=== PATIENT | female | born 1960 | race Caucasian/White ===

== ENCOUNTER → 2017-05-13 | Outpatient (CLI) | payer OTHER ==
[~2017-05-13] MED LIST: ESCI1TAB10 PO; GADAVIST IV PRN; OXYC-57 PO
--- NOTE | 2017-05-13 10:17 | DIAGNOSTIC IMAGING REPORT ---
TWO VIEW CHEST CLINICAL HISTORY: Memory loss.. FINDINGS: PA and lateral chest radiographs are compared to study dated 04/17/2010. The cardiomediastinal silhouette is unremarkable. The lungs appear slightly hyperinflated. Chronic interstitial thickening is similar to previous. There is no airspace consolidation or pleural effusion. There is no pneumothorax. Nipple shadows project over the lung bases. The skeletal structures are osteopenic. The bony thorax appears intact. Fusion hardware is seen in the lower cervical spine. IMPRESSION: No active disease in the chest. Electronically signed by: Robert Kruse M.D. 05/13/2017 10:16 AM Dictated Date/Time: 05/13/2017 10:14 AM
--- NOTE | 2017-05-13 10:21 | DIAGNOSTIC IMAGING REPORT ---
MRI OF THE BRAIN COMBO CLINICAL HISTORY: Memory loss. Altered sense of taste. COMPARISON STUDY: MRI of the brain dated 11/13/2013. TECHNIQUE: MRI of the brain was performed utilizing various T1 and T2-weighted sequences in the axial, sagittal, and coronal planes. Contrast-enhanced sequences were acquired following the administration of 7.5 cc of Gadavist. FINDINGS: Brain parenchyma: The brain parenchyma is normal in appearance. There is no hemorrhage or mass effect. There is no restricted diffusion to suggest acute ischemia. No enhancing mass lesion is identified on the postcontrast images. Barrios-white matter differentiation is preserved. No extra-axial fluid collection is seen. The cerebellar tonsils are normal in configuration. Ventricles, sulci, and cisterns: Normal in configuration. Pituitary and sella: Unremarkable. Intracranial vasculature: Normal flow voids are maintained at the skull base. Orbits: The bony orbits are grossly intact. Orbital contents are normal in appearance. Sinuses and mastoids: Clear. Calvarium: Unremarkable. Cervical cord: Partially visualized cervical spinal cord is normal in morphology and signal intensity. IMPRESSION: No acute intracranial abnormality. Electronically signed by: Robert Kruse M.D. 05/13/2017 10:19 AM Dictated Date/Time: 05/13/2017 10:16 AM
== END | disposition home or self-care (01) ==
LOC: C.MRIBC 09:21
PROVIDERS: ATTEND Nurse Practitioner Family
DX: R41.3 Other amnesia (principal); R43.2 Parageusia

== ENCOUNTER 2017-07-07 21:34 | Emergency (ER) | payer OTHER ==
[~2017-07-07] VITALS: Ht 160 cm; Wt 80.6 kg
[~2017-07-07 21:34] MED LIST changes: -GADAVIST IV PRN
[2017-07-07 21:43] VITALS: TEMP 36.5; Ht 160 cm; Wt 80.6 kg
[2017-07-07] MEDS ORDERED: KETOROLAC TROMETHAMINE 30 MG/ML VIAL IV STA (22:07)
[2017-07-07] MEDS ORDERED: WLLSR/300 PO (22:17)
[2017-07-07] MEDS ORDERED: BUPR-79 PO (22:31)
[2017-07-07 22:33] LABS: BASO % 0.2 %; BASO ABS # 0.02 K/uL (0-0.2); EOS % 1.1 %; EOS ABS # 0.09 K/uL (0-0.5); HEMOGLOBIN 13.4 g/dL (12.0-16.0); IG# 0.01 K/uL (0.00-0.02); LYMPH % 30.5 %; LYMPH ABS # 2.44 K/uL (1.2-3.4); MEAN CELL VOLUME 86.9 fL (80-100); MEAN CORPUSCULAR HEMOGLOBIN 29.8 pg (25-34); MEAN CORPUSCULAR HGB CONC 34.4 g/dl (32-36); MEAN PLATELET VOLUME 9.7 fL (7.4-10.4); MONO % 7.1 %; MONO ABS # 0.57 K/uL (0.11-0.59); NEUT ABS # 4.88 K/uL (1.4-6.5); PLATELET COUNT 236 K/uL (130-400); RED CELL DISTRIBUTION WIDTH CV 14.1 % (11.5-14.5); RED CELL DISTRIBUTION WIDTH SD 44.3 fL (36.4-46.3); WHITE BLOOD COUNT 8.01 K/uL (4.8-10.8)
--- NOTE | 2017-07-07 22:57 | DIAGNOSTIC IMAGING REPORT ---
ABDOMEN FOR HERNIA CLINICAL HISTORY: 56 years-old Female presenting with Periumbilical hernia. TECHNIQUE: Real-time grayscale Doppler ultrasound imaging of the periumbilical region was performed for a focused evaluation at the site of clinical concern. COMPARISON: None. FINDINGS: At the site of clinical concern immediately superior to the umbilicus, fluid containing bowel evident within a hernia sac. There is fluid surrounding the hernia sac. Bowel and fluid spontaneously resolved during the course of the examination though persistent fat hernia sac is evident. This was not reducible with compression by the sonographic probe. IMPRESSION: 1. Intermittent bowel containing periumbilical hernia with a nonreducible fat-containing component. Electronically signed by: Todd Villeda M.D. 07/07/2017 10:56 PM Dictated Date/Time: 07/07/2017 10:49 PM
[2017-07-07 23:02] LABS: ALBUMIN 3.8 gm/dl (3.4-5.0); CALCIUM 8.8 mg/dl (8.5-10.1); CREATININE 0.87 mg/dl (0.60-1.20); POTASSIUM 3.7 mmol/L (3.5-5.1); TOTAL PROTEIN 7.2 gm/dl (6.4-8.2)
[2017-07-08] MEDS ORDERED: NORCO 5/325MG HOME PACK PO ONE (00:45)
[2017-07-08 00:48] VITALS: BP 114/70; PULSE 68; O2SAT 96
--- NOTE | 2017-07-08 02:16 | EMERGENCY ROOM VISIT NOTE ---
History First contact with patient: 21:57 Chief Complaint: ABDOMINAL PAIN Stated Complaint: STOMACH PAIN, AND LUMP Nursing Triage Summary: Pt c/o mid abdominal pain, pt states it has become hard and painful to palpation throughout the day. Small hard mass noted above umbilicus. History of Present Illness The patient is a 56 year old female who presents to the Emergency Room with complaints of mid abdominal pain worsening over the course of the past 24 hours. The patient states that she noticed an intermittent lump around her umbilicus and did go to her primary care physician for this. The patient was examined at that time and was told this was related to gas. The patient states that her discomfort has significantly worsened, and now there is a large firm lump in the area of pain. The patient has not had fever or chills. No chest pain, chest tightness, or shortness of breath. No nausea, vomiting, or diarrhea. She does not report a history of abdominal surgery. She rates her discomfort a 7/10 without radiation. Touching the area seems to worsen her discomfort. Review of Systems More than 10 systems were reviewed and otherwise negative with the exception of history of present illness. Past Medical/Surgical History No chronic medical disease Family History No pertinent family history Social History Smoking Status: Never Smoker Marital Status: Current/Historical Medications Scheduled Bupropion (Wellbutrin Sr), 150 MG PO DAILY Physical Exam Vital Signs Date Time Temp Pulse Resp B/P (MAP) Pulse Ox O2 Delivery O2 Flow Rate FiO2 07/08/17 00:48 68 18 114/70 96 07/08/17 00:03 66 18 112/70 96 Room Air 07/07/17 21:43 36.5 80 18 137/85 98 Room Air Physical Exam VITALS: Vitals are noted on the nurse's note and reviewed by myself. Vital signs stable. GENERAL: Well-developed, well-nourished, white female who appears mildly uncomfortable secondary to her stated complaint. HEART: Regular rate and rhythm without murmurs gallops or rubs. LUNGS: Clear to auscultation bilaterally without wheezes, rales or rhonchi. No retractions or accessory muscle use. ABDOMEN: Positive normal bowel sounds x 4. Soft with appreciable mass just above the umbilicus measuring approximately 3 x 3 cm in dimension. This is firm and tender. This is not reducible. There is no overlying erythema or edema appreciated. Remaining abdomen without rebound or guarding. MUSCULOSKELETAL: No muscle atrophy, erythema, or edema noted. Full range of motion in all extremities. NEURO: Patient was alert and oriented to person place and time. CN II through XII grossly intact. Medical Decision & Procedures ER Provider Diagnostic Interpretation: ABDOMEN FOR HERNIA CLINICAL HISTORY: 56 years-old Female presenting with Periumbilical hernia. TECHNIQUE: Real-time grayscale Doppler ultrasound imaging of the periumbilical region was performed for a focused evaluation at the site of clinical concern. COMPARISON: None. FINDINGS: At the site of clinical concern immediately superior to the umbilicus, fluid containing bowel evident within a hernia sac. There is fluid surrounding the hernia sac. Bowel and fluid spontaneously resolved during the course of the examination though persistent fat hernia sac is evident. This was not reducible with compression by the sonographic probe. IMPRESSION: 1. Intermittent bowel containing periumbilical hernia with a nonreducible fat-containing component. Laboratory Results 07/07/17 22:15 Red Blood Count 4.49, Mean Corpuscular Volume 86.9, Mean Corpuscular Hemoglobin 29.8, Mean Corpuscular Hemoglobin Concent 34.4, Mean Platelet Volume 9.7, Neutrophils (%) (Auto) 61.0, Lymphocytes (%) (Auto) 30.5, Monocytes (%) (Auto) 7.1, Eosinophils (%) (Auto) 1.1, Basophils (%) (Auto) 0.2, Neutrophils # (Auto) 4.88, Lymphocytes # (Auto) 2.44, Monocytes # (Auto) 0.57, Eosinophils # (Auto) 0.09, Basophils # (Auto) 0.02 07/07/17 22:15 Test 07/07/17 22:15 White Blood Count 8.01 K/uL (4.8-10.8) Red Blood Count 4.49 M/uL (4.2-5.4) Hemoglobin 13.4 g/dL (12.0-16.0) Hematocrit 39.0 % (37-47) Mean Corpuscular Volume 86.9 fL (80-100) Mean Corpuscular Hemoglobin 29.8 pg (25-34) Mean Corpuscular Hemoglobin Concent 34.4 g/dl (32-36) Platelet Count 236 K/uL (130-400) Mean Platelet Volume 9.7 fL (7.4-10.4) Neutrophils (%) (Auto) 61.0 % Lymphocytes (%) (Auto) 30.5 % Monocytes (%) (Auto) 7.1 % Eosinophils (%) (Auto) 1.1 % Basophils (%) (Auto) 0.2 % Neutrophils # (Auto) 4.88 K/uL (1.4-6.5) Lymphocytes # (Auto) 2.44 K/uL (1.2-3.4) Monocytes # (Auto) 0.57 K/uL (0.11-0.59) Eosinophils # (Auto) 0.09 K/uL (0-0.5) Basophils # (Auto) 0.02 K/uL (0-0.2) RDW Standard Deviation 44.3 fL (36.4-46.3) RDW Coefficient of Variation 14.1 % (11.5-14.5) Immature Granulocyte % (Auto) 0.1 % Immature Granulocyte # (Auto) 0.01 K/uL (0.00-0.02) Anion Gap 6.0 mmol/L (3-11) Est Creatinine Clear Calc Drug Dose 74.3 ml/min Estimated GFR () 87.5 Estimated GFR (Non- 75.5 BUN/Creatinine Ratio 18.7 (10-20) Calcium Level 8.8 mg/dl (8.5-10.1) Total Bilirubin 0.4 mg/dl (0.2-1) Aspartate Amino Transf (AST/SGOT) 20 U/L (15-37) Alanine Aminotransferase (ALT/SGPT) 20 U/L (12-78) Alkaline Phosphatase 54 U/L (45-117) Total Protein 7.2 gm/dl (6.4-8.2) Albumin 3.8 gm/dl (3.4-5.0) Globulin 3.4 gm/dl (2.5-4.0) Albumin/Globulin Ratio 1.1 (0.9-2) Chemistry Specimen Hemolysis Medications Administered Medications (Trade) Dose Ordered Sig/Vidal Route Start Time Stop Time Status Last Admin Dose Admin Ketorolac Tromethamine (Toradol Inj) 30 mg NOW STAT IV 07/07/17 22:07 07/07/17 22:08 DC 07/07/17 22:29 30 MG Acetaminophen/ Hydrocodone Bitart (Tanacross 5/325mg Home Pack) 1 homepa UD ONCE PO 07/08/17 00:45 07/08/17 00:46 DC 07/08/17 00:48 1 HOMEPACK ED Course Physical exam and history were performed. Nursing notes, EMR, and Medication List were personally reviewed. Patient appears to have a palpable mass just above her umbilicus on examination. Clinically this seems to correlate with a hernia, although this is not reducible. This is the area of maximal tenderness for the patient. IV access was established and labs are obtained. The patient was given IV Toradol for comfort and ultrasound was performed. The patient's blood work is as above and was reviewed. She does not have a significantly elevated white blood cell count, gross anemia, bandemia, or significant electrolyte imbalance. Her ultrasound shows a fat-containing hernia that was not reducible on ultrasound. There also appears to be a sliding bowel component to this hernia as well. On reexamination the patient feels significantly improved. I did reexamine her abdomen, and the previous palpable hernia has completely reduced. I do not appreciate a residual component to this. The patient's pain has completely resolved. Overall the patient does appear well for discharge home. She appears to have a sliding periumbilical hernia that has intermittent bowel component. She does not appear acutely incarcerated. The patient will need to follow with general surgery, and I did give her the information for Dr. Goode's office to contact in the morning. The patient was educated on the importance of returning with any new, worsening, or concerning symptoms. She was otherwise invited back to the ER sooner if things were to change. She was pleased with this plan and voiced understanding. The chart was completed utilizing [employer] Speech Voice Recognition Software. Grammatical errors, random word insertions, pronoun errors, and incomplete sentences are an occasional consequence of this system due to software limitations, ambient noise, and hardware issues. Any formal questions or concerns about the content, text, or information contained within the body of this dictation should be directly addressed to the provider for clarification. . Medical Decision Differential diagnosis: Etiologies such as appendicitis, diverticulitis, PUD, biliary pathology, UTI, pancreatitis, obstruction, mesenteric ischemia, aortic pathology, infections, inflammatory bowel disease, renal colic, as well as others were entertained. Impression Primary Impression: Periumbilical hernia Departure Information Dispostion Home / Self-Care Condition GOOD Referrals Rowdy Goode M.D. Forms Call Back Authorization, HOME CARE DOCUMENTATION FORM, IMPORTANT VISIT INFORMATION Patient Instructions My [facility] Additional Instructions You were seen and evaluated today on an emergency basis only. This is not a substitute for, or an effort to provide, complete comprehensive medical care. It is not possible to recognize and treat all injuries or illnesses in a single emergency department visit. For this reason it is recommended that you followup with General surgery, Dr. Goode's office, by telephone tomorrow morning to arrange a follow-up visit in the next week. Let the office know you are seen here in the department to help make the appointment. For baseline pain relief you may alternate ibuprofen and acetaminophen every 4 hours for pain control. Take 600 mg ibuprofen (Advil) and then 4 hours later take 1000 mg acetaminophen (Tylenol). Do not take more than 3000 mg acetaminophen in a single day. Tanacross (hydrocodone/acetaminophen) 5/325 mg (homepack) ONE tablet by mout every 6 hours as needed for worsening breakthrough pain. Do not drink or drive on Tanacross. This medication will likely make you tired. Do not take Tanacross and Tylenol at the same time as both contain acetaminophen. Tanacross may cause constipation. You may wish to take an [id number] stool softener like Colace if this occurs. You are welcome to return to the emergency department anytime with new, worsening, or concerning symptoms.
== END 2017-07-08 00:50 | disposition home or self-care (01) ==
LOC: C.EDB 21:36 → C.EDC 07-08 00:50
DX: K42.9 Umbilical hernia without obstruction or gangrene (principal); Z79.899 Other long term (current) drug therapy

== ENCOUNTER → 2017-07-14 | Day surgery (SDC) | payer OTHER ==
[2017-07-12 13:33] VITALS: BMI 31.0
[~2017-07-14] VITALS: Ht 160 cm; Wt 79.5 kg
[~2017-07-14] MED LIST changes: +ATROPINE SULFATE 0.1 MG/ML 5ML SYR IV PRN; +BACITRACIN 50000 UNIT VIAL ONE; +BUPIVACAINE 0.5 % 5 MG/1 ML MPF 30ML VIAL ONE; +BUPR-79 PO; +CEFAZOLIN SOD 1 GM VIAL ONE; +DEXAMETHASONE SOD INJ 4 MG/ML VIAL ONE; -ESCI1TAB10 PO; +EpHEDrine SULFATE INJ 50 MG/ML AMP IV PRN; +FENTANYL CITRATE INJ 50 MCG/1 ML 2 ML VIAL ONE; +FLUMAZENIL 0.1 MG/1 ML 10 ML VIAL IV PRN; +GLYCOPYRROLATE INJ 0.2 MG/ML VIAL ONE; +HYDR-5688 PO; +HYDROmorphone INJ 0.5 MG/0.5 ML SYR ONE; +HYDROmorphone INJ 2 MG/ML SYR/VIAL IV PRN; +LABETALOL HCL IV 5 MG/ML 20ML IV PRN; +LACTATED RINGER'S 1000ML 1,000 ML IV SCH; +LIDOCAINE HCL 2% 2 ML VIAL (20MG/ML) ONE; +MIDAZOLAM HCL 1 MG/ML 2ML VIAL ONE; +NALOXONE HCL 0.4 MG/1 ML VIAL/CARP IV PRN; +NAPR1TAB9 PO; +NEOSTIGMINE METHYLSULFATE 5 MG/5 ML SYR ONE; +ONDANSETRON INJ 2 MG/ML 2 ML VIAL IV PRN; +ONDANSETRON INJ 2 MG/ML 2 ML VIAL ONE; +OXYCODONE/ACETAMINOPHEN 5-325 TAB PO PRN; +PROMETHAZINE HCL INJ 12.5 MG in SODIUM CHLORIDE 0.9% 50ML 50 ML IV PRN; +PROPOFOL IV EMULSION 10 MG/ML 20 ML VIAL ONE; +ROCURONIUM BROMIDE 10 MG/ML 5 ML VIAL ONE; +SODIUM CHLORIDE 0.9% 1000ML 1,000 ML IV SCH
[2017-07-14 08:10] VITALS: BP 111/61; PULSE 56; TEMP 36.6; O2SAT 98; Ht 160 cm; Wt 79.5 kg
--- NOTE | 2017-07-14 09:48 | History & Physical Bridge Note ---
H&P Re-Evaluation Bridge Note: I have examined the patient, reviewed the History & Physical and in the interval since the performance of the History & Physical I have noted the following changes of clinical significance: No changes noted all questions answered pt marked no one at bedside
--- NOTE | 2017-07-14 11:11 | [facility] Post Operative Brief Note ---
Immediate Operative Summary Operative Date July 14, 2017. Pre-Operative Diagnosis Intermittent incarcerated ventral hernia and umbilical hernia Post-Operative Diagnosis Intermittent Incarcerated Ventral Hernia and Umbilical Hernia Procedure(s) Performed Laparoscopic [facility]arcerated [facility] and [facility]ilical [facility] Sur[facility] Dr[facility] Chan Manager Of Global Surgeon(s) Goldie Slaughter PA-C Estimated Blood Loss 10ml Findings See Below as preop Specimens None per surgeon Anesthesia Type General
--- NOTE | 2017-07-14 11:37 | Discharge Instructions ---
Discharge Instructions Date of Service July 14, 2017. Admission Reason for Admission: Incarcerated Ventral Hernia, Umbilical Hernia Discharge Discharge Diagnosis / Problem: Incarcerated Ventral Hernia, Umbilical Hernia Discharge Goals Goal(s): Decrease discomfort, Improve function Activity Recommendations Activity Limitations: as noted below Lifting Limitations: no more than 10 pounds Exercise/Sports Limitations: until after follow-up appointment May Resume Sexual Activity: after follow-up appointment Shower/Bathe: tomorrow Driving or Machine Use: resume 3 days after discharge . Instructions / Follow-Up Instructions / Follow-Up You have steri-strips over your incisions. Please leave those on until they begin to fall off by themselves. You may shower tomorrow, but please do not soak or scrub your incisions. Please follow-up with Dr. Chan in the General Surgery Clinic in 1-2 weeks. Please call the office at [phone] to make an appointment if you do not have one already. Please call the office with any questions or concerns. Current Hospital Diet Patient's current hospital diet: Discharge Diet Recommended Diet: Regular Diet Procedures Procedures Performed: Laparoscopic Incarcerated Ventral Hernia Repair with Surgimesh and Laparoscopic Umbilical Hernia Repair with Surgimesh Pending Studies Studies pending at discharge: no Medical Emergencies . Who to Call and When: Medical Emergencies: If at any time you feel your situation is an emergency, please call 911 immediately. . Non-Emergent Contact Non-Emergency issues call your: Primary Care Provider, Surgeon Call Non-Emergent contact if: temperature is above 101.5, your pain is not controlled, wound has increased drainage, wound has increased redness . "Provider Documentation" section prepared by Anna Slaughter. .
--- NOTE | 2017-07-14 12:10 | Anesthesiology Progress Note ---
Anesthesia Post Op Note Date & Time July 14, 2017 at 12:10 Vital Signs Pain Intensity: 3 Vital Signs Past 12 Hours Date Time Temp Pulse Resp B/P (MAP) Pulse Ox O2 Delivery O2 Flow Rate FiO2 07/14/17 12:05 36.1 53 16 130/68 97 Room Air 07/14/17 11:55 53 16 131/71 100 Nasal Cannula 07/14/17 11:45 59 16 127/75 100 Oxymask 10 07/14/17 11:35 64 16 130/70 100 Oxymask 10 07/14/17 11:29 36.1 70 12 128/74 100 Oxymask 10 07/14/17 08:10 36.6 56 18 111/61 (78) 98 Room Air Notes Mental Status: alert / awake / arousable, participated in evaluation Pt Amnestic to Procedure: Yes Nausea / Vomiting: adequately controlled Pain: adequately controlled Airway Patency, RR, SpO2: stable & adequate BP & HR: stable & adequate Hydration State: stable & adequate Anesthetic Complications: no major complications apparent
[2017-07-14 12:20] VITALS: BP 140/68; PULSE 50; TEMP 36.4; O2SAT 96
[2017-07-14 12:50] VITALS: BP 121/64; PULSE 56; TEMP 36.3; O2SAT 98
--- NOTE | 2017-07-14 12:57 | OPERATIVE REPORT ---
DATE OF OPERATION: 07/14/2017 SURGEON: Micah Chan MD. BRUSH PAINTER: Anna Slaughter PA-C PREOPERATIVE DIAGNOSES: Incarcerated ventral and umbilical hernia. POSTOPERATIVE DIAGNOSES: Incarcerated ventral and umbilical hernia. PROCEDURE: Laparoscopic repair of incarcerated ventral and umbilical hernia. SUMMARY: After induction of adequate general anesthesia, patient's abdomen was prepped with Betadine scrubbing solution and properly draped. Systemic antibiotics were given. I made a small incision below the umbilicus. The patient had incarcerated tissue, probably the size of a chestnut in the umbilical area. We went below that since the patient also had a ventral hernia that started a few centimeters below in the ventral area. We made a small incision sufficient enough to place a Veress needle intraabdominally followed by CO2 followed by 5 mm trocar. Point of entry inspected and no injury identified. At this point, under direct visualization, we placed a 5 mm right upper quadrant port with preemptive analgesia 1% Xylocaine and a 5 mm left upper quadrant port. We placed a camera in the left upper quadrant port and were able to see that the patient had an incarcerated tissue of the falciform ligament into the supraumbilical area and also fatty tissue was going into the umbilical area. At this point, we placed another 5 mm left lower quadrant port. Using those 2, we were able then to maneuver and incise the preperitoneal tissue all over the musculofascial plane completely reducing the falciform ligament in this ventral area which was quite significant amount. We also continued our dissection inferiorly till we were able then to reduce the umbilical tissue that was incarcerated. The defect in the umbilical area was approximately 2 cm or so, in the umbilical tissue 1.5 or 2 cm. We got enough dissection all the way around that we were able then to make sure that we had good purchases of the mesh which we used a 10 cm Surgimesh that was brought into the umbilical trocar. Once we had positioned the abdomen, we controlled the pneumoperitoneum with the umbilical trocar with the towel clip. At this point, we used a suture passer and positioned the nylon stay suture on the mesh and elevated just below the ventral hernia area that would cover enough sufficiently all the repair overlapping. We then used the absorbable tacker to tack it circumferentially around that we had felt quite secure. I also placed #2 nylon sutures x2 at 12 and 3 o'clock position to hold it and keep it from maneuvering and displacing. The area was then checked for hemostasis and appeared satisfactory. We picked up all the extra ProTacks that had fallen . The wound was then closed using 4-0 Monocryl. Steri-Strips applied. Procedure was tolerated well by the patient. Estimated blood loss approximately 10 mL. The patient was taken to recovery room in good condition. I attest to the content of the Intraoperative Record and any orders documented therein. Any exceptions are noted below. MTDD
== END | disposition home or self-care (01) ==
LOC: C.ACU 07:54
PROVIDERS: ATTEND Surgery
DX: K43.6 Other and unspecified ventral hernia with obstruction, without gangrene (principal); K42.9 Umbilical hernia without obstruction or gangrene; F32.9 Major depressive disorder, single episode, unspecified; E66.9 Obesity, unspecified; Z68.31 Body mass index [BMI] 31.0-31.9, adult; Z86.718 Personal history of other venous thrombosis and embolism; Z88.5 Allergy status to narcotic agent; Z90.89 Acquired absence of other organs; Z98.890 Other specified postprocedural states; Z98.818 Other dental procedure status